=== PATIENT | male | born 1965 | race Caucasian/White ===

== ENCOUNTER → 2017-02-03 | Outpatient (CLI) | payer OTHER ==
[~2017-02-03] MED LIST: LEVO-217 PO; LOVAZA PO; LRS10 PO; [UNRECOGNIZED DRUG - OTHER] PO
--- NOTE | 2017-02-03 13:02 | DIAGNOSTIC IMAGING REPORT ---
CT HEAD WITHOUT CONTRAST (CT) CLINICAL HISTORY: 89XA Head [id number] Memory [id number] Intracranial shunt COMPARISON STUDY: 02/04/2016 TECHNIQUE: Axial CT of the brain is performed from the vertex to the skull base. IV contrast was not administered for this examination. A dose lowering technique was utilized adhering to the principles of ALARA. CT DOSE: 614.27 mGy.cm FINDINGS: No intra or extra-axial mass lesions are visualized. 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 There is a right occipital shunt catheter unchanged in position. The catheter crosses the midline and extends into the parenchyma adjacent to the left lateral ventricle. There is no evidence of pathologic ventricular dilatation. There is no evidence of acute sinusitis IMPRESSION: 1. No acute intracranial findings 2. Small bilateral subdural hematomas, unchanged the prior study and likely chronic 3. No change the position of the right occipital ventriculostomy catheter. The catheter extends across the midline, through the corpus callosum, and terminates in the region of the left thalamus. 4. No evidence of hydrocephalus Electronically signed by: Daniel Jackson M.D. 02/03/2017 1:00 PM Dictated Date/Time: 02/03/2017 12:58 PM
== END | disposition home or self-care (01) ==
LOC: C.CTS 12:15
PROVIDERS: ATTEND Psychiatry & Neurology Neurology
DX: R41.3 Other amnesia (principal); S09.90XA Unspecified injury of head, initial encounter; Z98.2 Presence of cerebrospinal fluid drainage device; S06.5X0A Traumatic subdural hemorrhage without loss of consciousness, initial encounter; X58.XXXA Exposure to other specified factors, initial encounter